=== PATIENT | female | born 1985 ===

== ENCOUNTER 2022-01-04 11:25 | Outpatient (CLI) | payer OTHER | END 2022-01-04 12:41 | disposition home or self-care (01) | LOC: PRENATAL 11:25 | PROVIDERS: ATTEND Obstetrics & Gynecology Maternal & Fetal Medicine | DX: O36.80X0 Pregnancy with inconclusive fetal viability, not applicable or unspecified (principal); O09.519 Supervision of elderly primigravida, unspecified trimester; Z3A.12 12 weeks gestation of pregnancy ==